=== PATIENT | male | born 1980 | race Caucasian/White ===

== ENCOUNTER 2018-06-06 10:44 | Emergency (ER) | payer OTHER ==
[2018-06-06 10:55] VITALS: BP 112/85; PULSE 93; TEMP 98.7; BMI 22.8
[2018-06-06] MEDS ORDERED: METHADONE HCL 10 MG TABLET (FOR DETOX USE ONLY) PO ONE (11:49)
--- NOTE | 2018-06-06 11:49 | PDOC ---
History of Present Illness - General Chief Complaint: RX Refill Stated Complaint: SENT FROM [facility]/ DETOX Time Seen by Provider: 06/06/18 11:09 History Source: Patient Exam Limitations: Clinical Condition - History of Present Illness Initial Comments: 06/06/18 11:44 Patient went history of opiate dependent presented for his dose of methadone after being late today to the methadone clinic today and was told to come to the emergency room for his dose. Patient reported no symptoms now. Timing/Duration: momentarily Past History - Past Medical History Allergies/Adverse Reactions: Allergies Allergy/AdvReac Type Severity Reaction Status Date / Time fish derived Allergy Severe Swelling Verified 06/06/18 10:55 Penicillins Allergy Severe Swelling Verified 06/06/18 10:55 Home Medications: Ambulatory Orders Divalproex [Depakote -] 500 mg PO BID #30 tablet.ec 12/13/14 Pantoprazole Sodium [Protonix -] 40 mg PO DAILY #30 tablet.ec 12/13/14 Quetiapine Fumarate [Seroquel -] 200 mg PO BID #60 12/13/14 traZODone HCL [Desyrel -] 100 mg PO HS #30 12/13/14 Quetiapine Fumarate [Seroquel] 300 mg PO BID #60 tablet 07/19/15 Mirtazapine [Remeron -] 15 mg PO HS #30 tablet 06/02/18 Quetiapine Fumarate [Seroquel -] 50 mg PO BID #60 tablet 06/02/18 Anemia: No Asthma: No Cancer: No Cardiac Disorders: Yes (heart murmur) CVA: No COPD: No CHF: No Dementia: No Diabetes: No GI Disorders: No Disorders: No HTN: No Hypercholesterolemia: No Kidney Stones: No Liver Disease: No Seizures: Yes (last episode was 6 months ago) Thyroid Disease: No - Surgical History Abdominal Surgery: Yes (abdominal hernia repair - laproscopic) Appendectomy: No Cardiac Surgery: No Cholecystectomy: No Lung Surgery: No Neurologic Surgery: No Orthopedic Surgery: No - Reproductive History Testicular Surgery: No - Immunization History Immunization Up to Date: Yes - Suicide/Smoking/Psychosocial Hx Smoking Status: Yes Smoking History: Current every day smoker Have you smoked in the past 12 months: No Number of Cigarettes Smoked Daily: 6 Cigars Per Day: 20 Information on smoking cessation initiated: No 'Breaking Loose' booklet given: 11/16/14 Hx Alcohol Use: No Drug/Substance Use Hx: Yes (methadone) Substance Use Type: Heroin Hx Substance Use Treatment: Yes Review of Systems - Review of Systems Able to Perform ROS?: Yes Is the patient limited Nauruan proficient: No Constitutional: No: Malaise, Weakness HEENTM: No: Symptoms Reported Cardiac (ROS): No: Symptoms Reported, See HPI, Chest Pain, Edema, Irregular Heart Rate, Lightheadedness, Palpitations, Syncope, Chest Tightness, Other ABD/GI: No: Nausea, Vomiting Neurological: No: Headache, Seizure, Unsteady Gait All Other Systems: Reviewed and Negative *Physical Exam - Vital Signs Last Vital Signs Temp Pulse Resp BP Pulse Ox 98.7 F 93 H 18 112/85 99 06/06/18 10:51 06/06/18 10:51 06/06/18 10:51 06/06/18 10:51 06/06/18 10:51 - Physical Exam General Appearance: Yes: Nourished, Appropriately Dressed. No: Apparent Distress HEENT: positive: Normal ENT Inspection Neck: positive: Supple Respiratory/Chest: positive: Lungs Clear, Normal Breath Sounds. negative: Respiratory Distress, Accessory Muscle Use Cardiovascular: positive: Regular Rhythm, Regular Rate Gastrointestinal/Abdominal: positive: Flat, Soft. negative: Tender Musculoskeletal: positive: Normal Inspection Extremity: positive: Normal Inspection Integumentary: positive: Normal Color Neurologic: positive: Fully Oriented, Alert, Normal Response Moderate Sedation - Procedure Monitoring Vital Signs: Procedure Monitoring Vital Signs Temperature 98.7 F 06/06/18 10:51 Pulse Rate 93 H 06/06/18 10:51 Respiratory Rate 18 06/06/18 10:51 Blood Pressure 112/85 06/06/18 10:51 O2 Sat by Pulse Oximetry (%) 99 06/06/18 10:51 Medical Decision Making - Medical Decision Making 06/06/18 11:47 Patient with history of opiate dependent presented for his methadone dose after medicine a dose today due to being late to the clinic. [facility] methadone clinic contacted, then clinic was closed and covering physician could not be reached. I was transferred to and spoke to nursing production clerks supervisor Waleska who confirmed patient does of 190 mg but report could not tell me the last dose. 190mg dose given to patient today and patient advised to follow up back with methadone clinic. *DC/Admit/Observation/Transfer Diagnosis at time of Disposition: Opioid dependence, Methadone dependence - Discharge Dispostion Disposition: HOME Condition at time of disposition: Stable Decision to Admit order: No - Referrals - Patient Instructions Printed Discharge Instructions: Methadone Additional Instructions: Your dose was given today. Follow-up back with methadone clinic as scheduled - Post Discharge Activity
[2018-06-06] MEDS ORDERED: METHADONE HCL 10 MG TABLET ONE (11:53)
== END 2018-06-06 12:06 | disposition home or self-care (01) ==
LOC: JERFT 10:44
DX: F11.20 Opioid dependence, uncomplicated (principal); F17.210 Nicotine dependence, cigarettes, uncomplicated; Z86.69 Personal history of other diseases of the nervous system and sense organs; Z88.0 Allergy status to penicillin; Z91.013 Allergy to seafood
CPT/HCPCS: 99281-25

== ENCOUNTER 2018-10-16 10:35 | Emergency (ER) | payer OTHER ==
[2018-10-16 10:53] VITALS: BMI 20.9
[2018-10-16] MEDS ORDERED: METHADONE HCL 10 MG TABLET PO ONE (11:01)
[2018-10-16] MEDS ORDERED: METHADONE HCL 10 MG TABLET ONE (11:07)
[2018-10-16] MEDS ORDERED: METHADONE HCL 40 MG DISPERSABLE TABLET ONE (11:08)
--- NOTE | 2018-10-16 11:14 | PDOC ---
History of Present Illness <Jaci Chandler - Last Filed: 10/16/18 11:49> - General History Source: Patient Exam Limitations: No Limitations <Anita Drew - Last Filed: 10/16/18 11:52> - General Chief Complaint: Shortness of Breath Stated Complaint: DIFFICULTY BREATHING Time Seen by Provider: 10/16/18 10:52 Past History <Jaci Chandler - Last Filed: 10/16/18 11:49> - Past Medical History Anemia: No Asthma: No Cancer: No Cardiac Disorders: Yes (heart murmur) CVA: No COPD: No CHF: No Dementia: No Diabetes: No GI Disorders: No Disorders: No HTN: No Hypercholesterolemia: No Kidney Stones: No Liver Disease: No Seizures: Yes (last episode was 6 months ago) Thyroid Disease: No - Surgical History Abdominal Surgery: Yes (abdominal hernia repair - laproscopic) Appendectomy: No Cardiac Surgery: No Cholecystectomy: No Lung Surgery: No Neurologic Surgery: No Orthopedic Surgery: No - Reproductive History Testicular Surgery: No - Immunization History Immunization Up to Date: Yes - Suicide/Smoking/Psychosocial Hx Smoking Status: Yes Smoking History: Current every day smoker Have you smoked in the past 12 months: No Number of Cigarettes Smoked Daily: 6 Cigars Per Day: 20 Information on smoking cessation initiated: No 'Breaking Loose' booklet given: 11/16/14 Hx Alcohol Use: No Drug/Substance Use Hx: Yes Substance Use Type: Heroin Hx Substance Use Treatment: Yes <Anita Drew - Last Filed: 10/16/18 11:52> - Past Medical History Allergies/Adverse Reactions: Allergies Allergy/AdvReac Type Severity Reaction Status Date / Time fish derived Allergy Severe Swelling Verified 10/16/18 10:45 Penicillins Allergy Severe Swelling Verified 10/16/18 10:45 Home Medications: Ambulatory Orders Mirtazapine [Remeron -] 30 mg PO HS #30 tablet 09/15/18 Fluoxetine HCl [Prozac] 20 mg PO DAILY #30 capsule 10/13/18 Methadone [Dolophine -] 190 mg PO DAILY 10/16/18 *Physical Exam - Vital Signs Last Vital Signs Temp Pulse Resp BP Pulse Ox 98.2 F 77 18 102/57 L 98 10/16/18 10:41 10/16/18 10:41 10/16/18 10:41 10/16/18 10:41 10/16/18 10:41 <Jaci Chandler - Last Filed: 10/16/18 11:49> - Vital Signs Last Vital Signs Temp Pulse Resp BP Pulse Ox 98.2 F 77 18 102/57 L 98 10/16/18 10:41 10/16/18 10:41 10/16/18 10:41 10/16/18 10:41 10/16/18 10:41 - Physical Exam General Appearance: No: Apparent Distress, Disheveled, Alcohol on Breath, Intoxicated Respiratory/Chest: positive: Lungs Clear, Normal Breath Sounds. negative: Respiratory Distress Cardiovascular: positive: Regular Rhythm, Regular Rate, S1, S2. negative: Murmur Gastrointestinal/Abdominal: positive: Normal Bowel Sounds, Soft. negative: Tender, Distended, Guarding, Rebound Integumentary: positive: Normal Color Neurologic: positive: Fully Oriented, Alert, Normal Mood/Affect <Anita Drew - Last Filed: 10/16/18 11:52> ED Treatment Course - Medications Given in the ED: ED Medications Discontinued Medications Generic Name Dose Route Start Last Admin Trade Name Freq PRN Reason Stop Dose Admin Methadone HCl 190 mg 10/16/18 11:01 10/16/18 11:14 Dolophine - PO 10/16/18 11:02 190 mg ONCE ONE Administration <Jaci Chandler - Last Filed: 10/16/18 11:49> Medical Decision Making - Medical Decision Making The patient was seen and evaluated in conjunction with midlevel provider under my direct supervision, ancillary studies were reviewed. I agree with the plan as outlined MIMA Drew. HPI, workup/dispo as outlined. VS reviewed, wnl. given methadone dose, confirmed EKG with sinus rhythm, prolonged QT which is different than prior, which could be from the ad terminal makeup operator methadone use. no ST segment derangements/elevations/ depressions. anticipate discharge, pcp followup, return precautions 10/16/18 11:49 <Jaci Chandler - Last Filed: 10/16/18 11:49> - Medical Decision Making 38 y/o M hx of substance abuse (opiates, on Methadone), PTSD, depression, anxiety, bipolar, heart murmur presents after missing his dose of methadone. Patient states he was running late to get his Methadone (has to get there by 10 AM and if he does not come in time, he does not receive his dose). Patient was running up hill and states when he reached the clinic, experienced some chest tightness, sob, tingling of fingers and collapsed on knees. States now he feels better. Patient was seen back in May for missing dose as well. Also has used other drugs in past (heroin, cocaine, PCP, DMT; however, states this was several years ago). Denies abd pain, n/v, headache. Sxs likely related to anxiety Patient feeling better currently Dose of methadone was confirmed by BUBBA Raphael Given Methadone 190 mg Will get EKG as well 10/16/18 11:10 EKG shows NSR at 71 bpm, QTc interval prolonged at 515 ms (prior EKG showed normal QTc interval) Likely related to Methadone usage (patient has been on the same dose for >1 year ) Patient currently asymptomatic Given copy of EKG; advised to f/u in medical clinic Stable for dc D/W Dr. Chandler 10/16/18 11:50 <Anita Drew - Last Filed: 10/16/18 11:52> *DC/Admit/Observation/Transfer <Jaci Chandler - Last Filed: 10/16/18 11:49> - Discharge Dispostion Decision to Admit order: No <Anita Drew - Last Filed: 10/16/18 11:52> Diagnosis at time of Disposition: Substance abuse - Discharge Dispostion Disposition: HOME Condition at time of disposition: Stable - Patient Instructions Additional Instructions: Thank you for choosing [facility]. It was a pleasure taking care of you. You were given your dose of Methadone today. Your QT interval was slightly prolonged on your EKG, likely related to your Methadone Please follow-up in medical clinic to keep an eye on this. Return to the Emergency Department if your symptoms worsen or persist or have other concerning symptoms.
[2018-10-16 11:55] VITALS: BP 102/68; PULSE 73; TEMP 98
--- NOTE | 2018-10-16 23:58 | EKG ---
Test Reason : Blood Pressure : / mmHG Vent. Rate : 071 BPM Atrial Rate : 071 BPM P-R Int : 152 ms QRS Dur : 088 ms QT Int : 474 ms P-R-T Axes : 079 047 038 degrees QTc Int : 515 ms POOR DATA QUALITY, INTERPRETATION MAY BE ADVERSELY AFFECTED NORMAL SINUS RHYTHM POSSIBLE LEFT ATRIAL ENLARGEMENT PROLONGED QT ABNORMAL ECG WHEN COMPARED WITH ECG OF 06-OCT-2018 08:51, NONSPECIFIC T WAVE ABNORMALITY, IMPROVED IN INFERIOR LEADS QT HAS LENGTHENED Confirmed by RAJWINDER HAMILTON MD ([id number]) on 10/16/2018 11:58:39 PM Referred By: Confirmed By:RAJWINDER HAMILTON MD
== END 2018-10-16 12:20 | disposition home or self-care (01) ==
LOC: JER 10:35
DX: F19.90 Other psychoactive substance use, unspecified, uncomplicated (principal); R01.1 Cardiac murmur, unspecified; F17.210 Nicotine dependence, cigarettes, uncomplicated
CPT/HCPCS: 93005; 93010; 99282-25

== ENCOUNTER 2018-11-12 12:48 | Emergency (ER) | payer OTHER ==
[2018-11-12 13:08] VITALS: BP 111/77; PULSE 92; TEMP 98.8; BMI 20.9
[2018-11-12] MEDS ORDERED: METHADONE HCL 10 MG TABLET PO ONE (13:46)
--- NOTE | 2018-11-12 13:57 | PDOC ---
History of Present Illness - General Chief Complaint: RX Refill Stated Complaint: METHADONE Time Seen by Provider: 11/12/18 13:11 History Source: Patient Exam Limitations: No Limitations Past History - Past Medical History Allergies/Adverse Reactions: Allergies Allergy/AdvReac Type Severity Reaction Status Date / Time fish derived Allergy Severe Swelling Verified 10/16/18 10:45 Penicillins Allergy Severe Swelling Verified 10/16/18 10:45 Home Medications: Ambulatory Orders Mirtazapine [Remeron -] 30 mg PO HS #30 tablet 09/15/18 Fluoxetine HCl [Prozac] 20 mg PO DAILY #30 capsule 10/13/18 Methadone [Dolophine -] 190 mg PO DAILY 10/16/18 Anemia: No Asthma: No Cancer: No Cardiac Disorders: Yes (heart murmur) CVA: No COPD: No CHF: No Dementia: No Diabetes: No GI Disorders: No Disorders: No HTN: No Hypercholesterolemia: No Kidney Stones: No Liver Disease: No Seizures: Yes (last episode was 6 months ago) Thyroid Disease: No - Surgical History Abdominal Surgery: Yes (abdominal hernia repair - laproscopic) Appendectomy: No Cardiac Surgery: No Cholecystectomy: No Lung Surgery: No Neurologic Surgery: No Orthopedic Surgery: No - Reproductive History Testicular Surgery: No - Immunization History Immunization Up to Date: Yes - Suicide/Smoking/Psychosocial Hx Smoking Status: Yes Smoking History: Current every day smoker Have you smoked in the past 12 months: No Number of Cigarettes Smoked Daily: 6 Cigars Per Day: 20 Information on smoking cessation initiated: No 'Breaking Loose' booklet given: 11/16/14 Hx Alcohol Use: No Drug/Substance Use Hx: Yes (methadone) Substance Use Type: Heroin Hx Substance Use Treatment: Yes *Physical Exam - Vital Signs Last Vital Signs Temp Pulse Resp BP Pulse Ox 98.8 F 92 H 19 111/77 99 11/12/18 13:05 11/12/18 13:05 11/12/18 13:05 11/12/18 13:05 11/12/18 13:05 - Physical Exam General Appearance: No: Apparent Distress, Disheveled Respiratory/Chest: positive: Lungs Clear, Normal Breath Sounds. negative: Respiratory Distress Cardiovascular: positive: Regular Rhythm, Regular Rate, S1, S2. negative: Murmur Gastrointestinal/Abdominal: positive: Soft. negative: Tender Neurologic: positive: Alert, Normal Mood/Affect Medical Decision Making - Medical Decision Making 38 y/o M hx of substance abuse (opiates, on Methadone), PTSD, depression, anxiety, bipolar, heart murmur presents after missing his dose of methadone today. States he was at [facility] today as his pet was sick and missed dose. Denies fever, sob, cp, abd pain, vomiting, headache. Of note, patient has been to the ED a few times in the past as well for missing his dose Dose of methadone confirmed with MIMA Heaton - is taking Methadone 180 mg ( prior dose was 190 mg and during last visit to ED, had prolonged QTc on his EKG ; per MIMA Heaton, after lowering the dose of his Methadone, his repeat EKG was checked and it was normal) Patient advised to avoid missing his methadone dose 11/12/18 13:57 *DC/Admit/Observation/Transfer Diagnosis at time of Disposition: Substance abuse - Discharge Dispostion Disposition: HOME Condition at time of disposition: Stable Decision to Admit order: No - Referrals - Patient Instructions Additional Instructions: Thank you for choosing [facility]. It was a pleasure taking care of you. Please refrain from missing your methadone dose Continue follow-up in your methadone clinic Return to the Emergency Department if you have any other concerning symptoms. - Post Discharge Activity
[2018-11-12] MEDS ORDERED: METHADONE HCL 10 MG TABLET ONE (14:04)
[2018-11-12] MEDS ORDERED: METHADONE HCL 40 MG DISPERSABLE TABLET ONE (14:05)
== END 2018-11-12 14:09 | disposition home or self-care (01) ==
LOC: JERFT 12:48
DX: Z76.0 Encounter for issue of repeat prescription (principal); F11.20 Opioid dependence, uncomplicated; F43.10 Post-traumatic stress disorder, unspecified; F41.8 Other specified anxiety disorders; F31.9 Bipolar disorder, unspecified
CPT/HCPCS: 99281-25

== ENCOUNTER → 2018-11-26 | Outpatient (CLI) | payer OTHER | LOC: YHH 15:07 ==

== ENCOUNTER 2020-10-10 09:58 | Inpatient (IN) | payer OTHER ==
[2020-10-10 10:32] VITALS: BMI 17.4
[2020-10-10] MEDS ORDERED: MAGNESIUM CITRATE 300 ML BOTTLE PO PRN (13:02)
[2020-10-10] MEDS ORDERED: IBUPROFEN 400 MG TABLET (FP) PO PRN (13:02)
[2020-10-10] MEDS ORDERED: LOPERAMIDE HCL 2 MG CAPSULE PO PRN (13:02)
[2020-10-10] MEDS ORDERED: MAGNESIUM HYDROX 2400MG/30ML ORAL SUSPENSION 30 ML CUP PO PRN (13:02)
[2020-10-10] MEDS ORDERED: MAG HYDROX/AL HYDROX/SIMETH 30 ML UNIT-DOSE CUP PO PRN (13:02)
[2020-10-10] MEDS ORDERED: ACETAMINOPHEN 325 MG TABLET (FP) PO PRN (13:02)
[2020-10-10] MEDS ORDERED: guaiFENesin 200 MG/10 ML 10 ML UNIT-DOSE CUPS PO PRN (13:02)
[2020-10-10] MEDS ORDERED: P-EPHED 60MG/TRIPROLIDI 2.5MG TABLET PO PRN (13:02)
[2020-10-10] MEDS ORDERED: TUBERCULIN PPD 5 TU/0.1ML VIAL ID ONE (15:31)
[2020-10-10] MEDS: hydrOXYzine PAMOATE 25 MG CAPSULE (FP) PO SCH ×3 (15:53→21:43)
[2020-10-10] MEDS: PRENATAL VITAMINS W/ FOLIC ACID TABLET (FP) PO SCH (15:53)
[2020-10-10] MEDS ORDERED: PT OWN MED DRAWER 7, Y5N ONE (16:28)
[2020-10-10 17:26] LABS: HEMATOCRIT 41.9 % (35.4-49); HEMOGLOBIN 13.8 GM/dL (11.7-16.9); MCH 30.4 pg (25.7-33.7); MCHC 32.9 g/dl (32.0-35.9); MEAN CELL VOLUME 92.5 fl (80-96); MEAN PLT VOLUME 9.7 fl (7.5-11.1); PLATELET COUNT 216 10^3/uL (134-434); RBC 4.53 M/mm3 (4.00-5.60); RDW 13.3 % (11.9-15.9); WHITE BLOOD COUNT 6.6 K/mm3 (4.0-10.0)
[2020-10-10 17:32] LABS: ALBUMIN 3.7 g/dl (3.4-5.0); BLOOD UREA NITROGEN 9.8 mg/dL (7-18); CALCIUM 8.6 mg/dL (8.5-10.1)
[2020-10-10 17:35] LABS: CREATININE 0.7 mg/dL (0.55-1.3)
[2020-10-10 17:36] LABS: BILIRUBIN,TOTAL 0.3 mg/dL (0.2-1)
[2020-10-10 17:37] LABS: TOT PROT 6.5 g/dl (6.4-8.2)
[2020-10-10] MEDS: MIRTAZAPINE 15 MG TABLET (FP) PO SCH (21:40)
[2020-10-10] MEDS: THIAMINE HCL 100 MG TABLET (FP) PO SCH (21:40)
[2020-10-10] MEDS: QUEtiapine FUMARATE 50 MG TABLET PO SCH (21:40)
[2020-10-10] MEDS ORDERED: MELATONIN 5 MG TABLETS PO SCH (22:00)
[2020-10-11] MEDS: hydrOXYzine PAMOATE 25 MG CAPSULE (FP) PO SCH ×5 (06:39→21:30)
[2020-10-11] MEDS ORDERED: methaDONE HCL 10 MG TABLET PO ONE ×2 (07:29→10:00)
[2020-10-11] MEDS ORDERED: methaDONE HCL 10 MG TABLET ONE (08:05)
[2020-10-11] MEDS ORDERED: methaDONE HCL 40 MG DISPERSABLE TABLET ONE (08:05)
[2020-10-11] MEDS ORDERED: PT OWN MED DRAWER 7, Y5N ONE (09:46)
[2020-10-11] MEDS: EMTRICITABINE/TENOFOV ALAFENAM (DESCOVY) TABLET PO SCH (09:47)
[2020-10-11] MEDS: NICOTINE 21 MG/24 HOURS TOPICAL PATCH TD SCH (09:47)
[2020-10-11] MEDS: PRENATAL VITAMINS W/ FOLIC ACID TABLET (FP) PO SCH (09:47)
[2020-10-11] MEDS: NICOTINE POLACRILEX 2 MG GUM BC PRN ×2 (09:48→17:08)
[2020-10-11] MEDS ORDERED: methaDONE HCL 40 MG DISPERSABLE TABLET PO SCH (10:00)
[2020-10-11 17:15] LABS: PH,URINE 7.5 (5.0-8.0); URINE APPEARANCE CLEAR; URINE BILIRUBIN NEGATIVE (NEGATIVE); URINE COLOR YELLOW; URINE GLUCOSE (UA) NEGATIVE (NEGATIVE); URINE KETONE NEGATIVE (NEGATIVE); URINE LEUK ESTERASE NEGATIVE (NEGATIVE); URINE NITRITE NEGATIVE (NEGATIVE); URINE PROTEIN NEGATIVE (NEGATIVE)
[2020-10-11] MEDS: MIRTAZAPINE 15 MG TABLET (FP) PO SCH (21:29)
[2020-10-11] MEDS: QUEtiapine FUMARATE 50 MG TABLET PO SCH (21:29)
[2020-10-11] MEDS: THIAMINE HCL 100 MG TABLET (FP) PO SCH (21:29)
[2020-10-12] MEDS ORDERED: methaDONE HCL 40 MG DISPERSABLE TABLET PO SCH (06:00)
[2020-10-12] MEDS ORDERED: methaDONE HCL 40 MG DISPERSABLE TABLET ONE (06:26)
[2020-10-12] MEDS ORDERED: methaDONE HCL 10 MG TABLET ONE (06:26)
[2020-10-12] MEDS: hydrOXYzine PAMOATE 25 MG CAPSULE (FP) PO SCH ×5 (06:47→21:32)
[2020-10-12] MEDS: PRENATAL VITAMINS W/ FOLIC ACID TABLET (FP) PO SCH (09:04)
[2020-10-12] MEDS: EMTRICITABINE/TENOFOV ALAFENAM (DESCOVY) TABLET PO SCH (09:04)
[2020-10-12] MEDS: NICOTINE 21 MG/24 HOURS TOPICAL PATCH TD SCH (09:04)
[2020-10-12] MEDS: THIAMINE HCL 100 MG TABLET (FP) PO SCH (21:14)
[2020-10-12] MEDS: MIRTAZAPINE 15 MG TABLET (FP) PO SCH (21:14)
[2020-10-12] MEDS: QUEtiapine FUMARATE 50 MG TABLET PO SCH (21:15)
[2020-10-12] MEDS: NICOTINE POLACRILEX 2 MG GUM BC PRN (21:16)
[2020-10-13] MEDS ORDERED: methaDONE HCL 10 MG TABLET ONE (05:45)
[2020-10-13] MEDS ORDERED: methaDONE HCL 40 MG DISPERSABLE TABLET ONE (05:45)
[2020-10-13] MEDS: hydrOXYzine PAMOATE 25 MG CAPSULE (FP) PO SCH ×5 (06:15→21:36)
[2020-10-13] MEDS ORDERED: PT OWN MED DRAWER 7, Y5N ONE (08:32)
[2020-10-13] MEDS: EMTRICITABINE/TENOFOV ALAFENAM (DESCOVY) TABLET PO SCH (09:58)
[2020-10-13] MEDS: NICOTINE 21 MG/24 HOURS TOPICAL PATCH TD SCH (09:58)
[2020-10-13] MEDS: PRENATAL VITAMINS W/ FOLIC ACID TABLET (FP) PO SCH (09:58)
[2020-10-13] MEDS: NICOTINE POLACRILEX 2 MG GUM BC PRN ×2 (18:55→21:36)
[2020-10-13] MEDS: MIRTAZAPINE 15 MG TABLET (FP) PO SCH (21:36)
[2020-10-13] MEDS: THIAMINE HCL 100 MG TABLET (FP) PO SCH (21:36)
[2020-10-13] MEDS: QUEtiapine FUMARATE 50 MG TABLET PO SCH (21:36)
[2020-10-14] MEDS: NICOTINE POLACRILEX 2 MG GUM BC PRN ×4 (01:50→21:22)
[2020-10-14] MEDS ORDERED: methaDONE HCL 10 MG TABLET ONE (03:44)
[2020-10-14] MEDS ORDERED: methaDONE HCL 40 MG DISPERSABLE TABLET ONE (03:45)
[2020-10-14] MEDS: hydrOXYzine PAMOATE 25 MG CAPSULE (FP) PO SCH ×5 (06:57→21:21)
[2020-10-14] MEDS: EMTRICITABINE/TENOFOV ALAFENAM (DESCOVY) TABLET PO SCH (09:47)
[2020-10-14] MEDS: NICOTINE 21 MG/24 HOURS TOPICAL PATCH TD SCH (09:47)
[2020-10-14] MEDS: PRENATAL VITAMINS W/ FOLIC ACID TABLET (FP) PO SCH (09:47)
[2020-10-14] MEDS: QUEtiapine FUMARATE 50 MG TABLET PO SCH (21:21)
[2020-10-14] MEDS: THIAMINE HCL 100 MG TABLET (FP) PO SCH (21:21)
[2020-10-14] MEDS: MIRTAZAPINE 15 MG TABLET (FP) PO SCH (21:21)
[2020-10-15] MEDS ORDERED: methaDONE HCL 10 MG TABLET ONE (03:16)
[2020-10-15] MEDS ORDERED: methaDONE HCL 40 MG DISPERSABLE TABLET ONE (03:17)
[2020-10-15] MEDS: hydrOXYzine PAMOATE 25 MG CAPSULE (FP) PO SCH ×2 (06:29→09:16)
[2020-10-15 06:50] VITALS: BP 100/64; PULSE 93; TEMP 96.7
[2020-10-15] MEDS: PRENATAL VITAMINS W/ FOLIC ACID TABLET (FP) PO SCH (09:16)
[2020-10-15] MEDS: NICOTINE 21 MG/24 HOURS TOPICAL PATCH TD SCH (09:16)
[2020-10-15] MEDS ORDERED: PT OWN MED DRAWER 7, Y5N ONE (09:17)
[2020-10-15] MEDS: NICOTINE POLACRILEX 2 MG GUM BC PRN (09:19)
[2020-10-15] MEDS: EMTRICITABINE/TENOFOV ALAFENAM (DESCOVY) TABLET PO SCH (09:20)
[2020-10-15] MEDS ORDERED: hydrOXYzine PAMOATE 25 MG CAPSULE (FP) PO PRN (11:41)
== END 2020-10-15 12:20 | disposition home or self-care (01) | DRG 772 ==
LOC: YASAS 09:58 → Y3E 14:09
PROVIDERS: ADMIT Allergy & Immunology; ATTEND Allergy & Immunology
PROC: HZ42ZZZ Group Counseling for Substance Abuse Treatment, Cognitive-Behavioral (ICD-10-PCS; principal; 2020-10-10)
DX: F14.20 Cocaine dependence, uncomplicated (principal); F11.20 Opioid dependence, uncomplicated; F12.20 Cannabis dependence, uncomplicated; F17.210 Nicotine dependence, cigarettes, uncomplicated; F19.282 Other psychoactive substance dependence with psychoactive substance-induced sleep disorder; F19.24 Other psychoactive substance dependence with psychoactive substance-induced mood disorder; F31.9 Bipolar disorder, unspecified; F41.9 Anxiety disorder, unspecified; R63.4 Abnormal weight loss; Z68.1 Body mass index [BMI] 19.9 or less, adult; Z98.890 Other specified postprocedural states; Z88.0 Allergy status to penicillin; Z91.013 Allergy to seafood
CPT/HCPCS: 36415; 80053; 81003; 85027; 86780; 93005; 93010; C9803; U0003; U0005

== ENCOUNTER 2021-08-01 22:29 | Inpatient (IN) | payer OTHER ==
[2021-08-01] MEDS ORDERED: MAGNESIUM CITRATE 300 ML BOTTLE PO PRN (23:28)
[2021-08-01] MEDS ORDERED: guaiFENesin 200 MG/10 ML 10 ML UNIT-DOSE CUPS PO PRN (23:28)
[2021-08-01] MEDS ORDERED: MAGNESIUM HYDROX 2400MG/30ML ORAL SUSPENSION 30 ML CUP PO PRN (23:28)
[2021-08-01] MEDS ORDERED: NICOTINE POLACRILEX 2 MG GUM BC PRN (23:28)
[2021-08-01] MEDS ORDERED: ACETAMINOPHEN 325 MG TABLET (FP) PO PRN (23:28)
[2021-08-01] MEDS ORDERED: IBUPROFEN 400 MG TABLET (FP) PO PRN (23:28)
[2021-08-01] MEDS ORDERED: MAG HYDROX/AL HYDROX/SIMETH 30 ML UNIT-DOSE CUP PO PRN (23:28)
[2021-08-01] MEDS ORDERED: NALOXONE HCL 0.4 MG/ML VIAL IM PRN (23:28)
[2021-08-01] MEDS ORDERED: P-EPHED 60MG/TRIPROLIDI 2.5MG TABLET PO PRN (23:28)
[2021-08-01] MEDS ORDERED: LOPERAMIDE HCL 2 MG CAPSULE PO PRN (23:28)
[2021-08-01] MEDS ORDERED: hydrOXYzine PAMOATE 25 MG CAPSULE (FP) PO PRN (23:28)
[2021-08-01 23:51] VITALS: BMI 16.9
[2021-08-02] MEDS: MELATONIN 5 MG TABLETS PO SCH ×2 (07:00→21:39)
[2021-08-02] MEDS ORDERED: methaDONE HCL 10 MG TABLET PO SCH (07:00)
[2021-08-02] MEDS ORDERED: methaDONE HCL 10 MG TABLET ONE (07:13)
[2021-08-02] MEDS ORDERED: methaDONE HCL 40 MG DISPERSABLE TABLET ONE (07:13)
[2021-08-02] MEDS ORDERED: TUBERCULIN PPD 5 TU/0.1ML VIAL ID ONE (07:15)
[2021-08-02] MEDS: NICOTINE 21 MG/24 HOURS TOPICAL PATCH TD SCH (09:50)
[2021-08-02] MEDS: PRENATAL VITAMINS W/ FOLIC ACID TABLET (FP) PO SCH (09:50)
[2021-08-02 09:54] LABS: HEMATOCRIT 36.2 % (35.4-49); HEMOGLOBIN 12.6 GM/dL (11.7-16.9); MCH 31.9 pg (25.7-33.7); MCHC 34.9 g/dl (32.0-35.9); MEAN CELL VOLUME 91.7 fl (80-96); PLATELET COUNT 172 10^3/uL (134-434); RBC 3.95 M/mm3 (4.00-5.60); RDW 12.8 % (11.9-15.9); WHITE BLOOD COUNT 7.9 K/mm3 (4.0-10.0)
[2021-08-02 10:13] LABS: BILIRUBIN,TOTAL 0.2 mg/dL (0.2-1)
[2021-08-02 10:26] LABS: CALCIUM 8.6 mg/dL (8.5-10.1)
[2021-08-02 10:27] LABS: ALBUMIN 3.3 g/dl (3.4-5.0); BLOOD UREA NITROGEN 16.7 mg/dL (7-18)
[2021-08-02 10:30] LABS: CREATININE 0.8 mg/dL (0.55-1.3)
[2021-08-02 10:32] LABS: TOT PROT 5.4 g/dl (6.4-8.2)
[2021-08-02 11:42] LABS: SYPHILIS W/ RPR CONF NON-REACTIVE (NONREACTIVE)
[2021-08-02 17:21] LABS: URINE APPEARANCE TURBID; URINE BILIRUBIN NEGATIVE (NEGATIVE); URINE COLOR YELLOW; URINE GLUCOSE (UA) NEGATIVE (NEGATIVE); URINE KETONE NEGATIVE (NEGATIVE); URINE LEUK ESTERASE NEGATIVE (NEGATIVE); URINE NITRITE NEGATIVE (NEGATIVE); URINE PROTEIN NEGATIVE (NEGATIVE)
[2021-08-02] MEDS: THIAMINE HCL 100 MG TABLET (FP) PO SCH (21:39)
[2021-08-02] MEDS: MIRTAZAPINE 15 MG TABLET (FP) PO SCH (21:39)
[2021-08-03] MEDS ORDERED: methaDONE HCL 10 MG TABLET ONE (03:23)
[2021-08-03] MEDS ORDERED: methaDONE HCL 40 MG DISPERSABLE TABLET ONE (03:23)
[2021-08-03] MEDS: NICOTINE 21 MG/24 HOURS TOPICAL PATCH TD SCH (09:58)
[2021-08-03] MEDS: PRENATAL VITAMINS W/ FOLIC ACID TABLET (FP) PO SCH (09:59)
[2021-08-03] MEDS: NICOTINE 10 MG CARTRIDGE (INHALER) IH SCH (12:11)
[2021-08-03] MEDS: MELATONIN 5 MG TABLETS PO SCH (21:57)
[2021-08-03] MEDS: THIAMINE HCL 100 MG TABLET (FP) PO SCH (21:58)
[2021-08-03] MEDS: MIRTAZAPINE 15 MG TABLET (FP) PO SCH (21:59)
[2021-08-04] MEDS ORDERED: methaDONE HCL 10 MG TABLET ONE (03:27)
[2021-08-04] MEDS ORDERED: methaDONE HCL 40 MG DISPERSABLE TABLET ONE (03:28)
[2021-08-04] MEDS: NICOTINE 21 MG/24 HOURS TOPICAL PATCH TD SCH (10:02)
[2021-08-04] MEDS: PRENATAL VITAMINS W/ FOLIC ACID TABLET (FP) PO SCH (10:02)
[2021-08-04] MEDS: NICOTINE 10 MG CARTRIDGE (INHALER) IH SCH (10:02)
[2021-08-04] MEDS: MELATONIN 5 MG TABLETS PO SCH (21:37)
[2021-08-04] MEDS: THIAMINE HCL 100 MG TABLET (FP) PO SCH (21:37)
[2021-08-04] MEDS: MIRTAZAPINE 15 MG TABLET (FP) PO SCH (21:39)
[2021-08-05] MEDS ORDERED: methaDONE HCL 40 MG DISPERSABLE TABLET ONE (04:31)
[2021-08-05] MEDS ORDERED: methaDONE HCL 10 MG TABLET ONE (04:31)
[2021-08-05 06:33] VITALS: BP 113/75; PULSE 77; TEMP 97.1
[2021-08-05] MEDS: PRENATAL VITAMINS W/ FOLIC ACID TABLET (FP) PO SCH (09:20)
[2021-08-05] MEDS: NICOTINE 10 MG CARTRIDGE (INHALER) IH SCH (09:21)
[2021-08-05] MEDS: NICOTINE 21 MG/24 HOURS TOPICAL PATCH TD SCH (09:21)
[2021-08-05] MEDS ORDERED: NICOTINE 10 MG CARTRIDGE (INHALER) IH PRN (09:51)
== END 2021-08-05 12:14 | disposition home or self-care (01) | DRG 772 ==
LOC: YASAS 22:29 → Y3E 08-02 03:27
PROVIDERS: ADMIT Allergy & Immunology; ATTEND Allergy & Immunology
PROC: HZ42ZZZ Group Counseling for Substance Abuse Treatment, Cognitive-Behavioral (ICD-10-PCS; principal; 2021-08-02)
DX: F11.20 Opioid dependence, uncomplicated (principal); F14.20 Cocaine dependence, uncomplicated; F12.20 Cannabis dependence, uncomplicated; F17.210 Nicotine dependence, cigarettes, uncomplicated; F19.282 Other psychoactive substance dependence with psychoactive substance-induced sleep disorder; F19.24 Other psychoactive substance dependence with psychoactive substance-induced mood disorder; F31.9 Bipolar disorder, unspecified; F41.9 Anxiety disorder, unspecified; F43.10 Post-traumatic stress disorder, unspecified; G47.00 Insomnia, unspecified; R63.4 Abnormal weight loss; Z68.1 Body mass index [BMI] 19.9 or less, adult; Z28.310 Unvaccinated for COVID-19
CPT/HCPCS: 36415; 80053; 81003; 85027; 86780; 86803; 93005; 93010; C9803-CS; U0003; U0005

== ENCOUNTER 2022-01-21 02:01 | Inpatient (IN) | payer OTHER ==
[2022-01-21] MEDS ORDERED: LOPERAMIDE HCL 2 MG CAPSULE PO PRN (02:13)
[2022-01-21] MEDS ORDERED: guaiFENesin 200 MG/10 ML 10 ML UNIT-DOSE CUPS PO PRN (02:13)
[2022-01-21] MEDS ORDERED: hydrOXYzine PAMOATE 25 MG CAPSULE (FP) PO PRN (02:13)
[2022-01-21] MEDS ORDERED: MAGNESIUM HYDROX 2400MG/30ML ORAL SUSPENSION 30 ML CUP PO PRN (02:13)
[2022-01-21] MEDS ORDERED: MAGNESIUM CITRATE 300 ML BOTTLE PO PRN (02:13)
[2022-01-21] MEDS ORDERED: NICOTINE POLACRILEX 2 MG GUM BC PRN (02:13)
[2022-01-21] MEDS ORDERED: MAG HYDROX/AL HYDROX/SIMETH 30 ML UNIT-DOSE CUP PO PRN (02:13)
[2022-01-21] MEDS ORDERED: P-EPHED 60MG/TRIPROLIDI 2.5MG TABLET PO PRN (02:13)
[2022-01-21 02:29] VITALS: BMI 16.1
[2022-01-21] MEDS ORDERED: methaDONE HCL 10 MG TABLET PO SCH ×2 (09:15)
[2022-01-21] MEDS ORDERED: TUBERCULIN PPD 5 TU/0.1ML VIAL ID ONE (10:28)
[2022-01-21] MEDS: PRENATAL VITAMINS W/ FOLIC ACID TABLET (FP) PO SCH (10:32)
[2022-01-21] MEDS: NICOTINE 14 MG/24 HOURS TOPICAL PATCH TD SCH (10:32)
[2022-01-21 10:47] LABS: CALCIUM 8.5 mg/dL (8.5-10.1)
[2022-01-21 10:48] LABS: ALBUMIN 3.3 g/dl (3.4-5.0); BLOOD UREA NITROGEN 25.3 mg/dL (7-18)
[2022-01-21 10:51] LABS: CREATININE 0.9 mg/dL (0.55-1.3)
[2022-01-21 10:52] LABS: BILIRUBIN,TOTAL 0.3 mg/dL (0.2-1)
[2022-01-21 10:53] LABS: HEMATOCRIT 39.1 % (35.4-49); HEMOGLOBIN 12.7 GM/dL (11.7-16.9); MCH 30.4 pg (25.7-33.7); MCHC 32.4 g/dl (32.0-35.9); MEAN PLT VOLUME 9.2 fl (7.5-11.1); PLATELET COUNT 238 10^3/uL (134-434); RBC 4.16 M/mm3 (4.00-5.60); RDW 13.1 % (11.9-15.9); WHITE BLOOD COUNT 7.3 K/mm3 (4.0-10.0)
[2022-01-21 11:48] LABS: SYPHILIS W/ RPR CONF NON-REACTIVE (NONREACTIVE)
[2022-01-21] MEDS: MELATONIN 5 MG TABLETS PO SCH (21:42)
[2022-01-21] MEDS: THIAMINE HCL 100 MG TABLET (FP) PO SCH (21:42)
[2022-01-21] MEDS: MIRTAZAPINE 15 MG TABLET (FP) PO SCH (21:44)
[2022-01-22] MEDS: IBUPROFEN 400 MG TABLET (FP) PO PRN (06:17)
[2022-01-22 07:09] VITALS: RESP 18
[2022-01-22] MEDS: PRENATAL VITAMINS W/ FOLIC ACID TABLET (FP) PO SCH (09:37)
[2022-01-22] MEDS: NICOTINE 14 MG/24 HOURS TOPICAL PATCH TD SCH (09:37)
[2022-01-22 11:29] LABS: URINE APPEARANCE CLEAR; URINE BILIRUBIN NEGATIVE (NEGATIVE); URINE COLOR YELLOW; URINE GLUCOSE (UA) NEGATIVE (NEGATIVE); URINE KETONE NEGATIVE (NEGATIVE); URINE LEUK ESTERASE NEGATIVE (NEGATIVE); URINE NITRITE NEGATIVE (NEGATIVE); URINE PROTEIN NEGATIVE (NEGATIVE); URINE UROBILINOGEN 0.2 mg/dL (0.2-1.0)
[2022-01-22] MEDS: METHOCARBAMOL 500 MG TABLET PO SCH ×2 (14:00→21:29)
[2022-01-22] MEDS ORDERED: NICOTINE 10 MG CARTRIDGE (INHALER) IH SCH (14:00)
[2022-01-22] MEDS: NICOTINE 10 MG CARTRIDGE (INHALER) IH PRN (16:59)
[2022-01-22] MEDS: MELATONIN 5 MG TABLETS PO SCH (21:29)
[2022-01-22] MEDS: MIRTAZAPINE 15 MG TABLET (FP) PO SCH (21:29)
[2022-01-22] MEDS: THIAMINE HCL 100 MG TABLET (FP) PO SCH (21:29)
[2022-01-23] MEDS: PRENATAL VITAMINS W/ FOLIC ACID TABLET (FP) PO SCH (10:29)
[2022-01-23] MEDS: IBUPROFEN 400 MG TABLET (FP) PO PRN ×2 (10:30→21:29)
[2022-01-23] MEDS: METHOCARBAMOL 500 MG TABLET PO SCH ×2 (10:30→21:28)
[2022-01-23] MEDS: NICOTINE 14 MG/24 HOURS TOPICAL PATCH TD SCH (10:30)
[2022-01-23] MEDS: MIRTAZAPINE 15 MG TABLET (FP) PO SCH (21:28)
[2022-01-23] MEDS: THIAMINE HCL 100 MG TABLET (FP) PO SCH (21:28)
[2022-01-23] MEDS: MELATONIN 5 MG TABLETS PO SCH (21:28)
[2022-01-23] MEDS: NICOTINE 10 MG CARTRIDGE (INHALER) IH PRN (21:29)
[2022-01-24] MEDS: IBUPROFEN 400 MG TABLET (FP) PO PRN (06:04)
[2022-01-24 07:11] VITALS: BP 125/78; PULSE 71; TEMP 98.9
[2022-01-24] MEDS: PRENATAL VITAMINS W/ FOLIC ACID TABLET (FP) PO SCH (09:38)
[2022-01-24] MEDS: METHOCARBAMOL 500 MG TABLET PO SCH ×2 (09:38→21:58)
[2022-01-24] MEDS: NICOTINE 14 MG/24 HOURS TOPICAL PATCH TD SCH (09:39)
[2022-01-24] MEDS: NICOTINE 10 MG CARTRIDGE (INHALER) IH PRN ×2 (09:40→18:27)
[2022-01-24] MEDS: MIRTAZAPINE 15 MG TABLET (FP) PO SCH (21:58)
[2022-01-24] MEDS: THIAMINE HCL 100 MG TABLET (FP) PO SCH (21:58)
[2022-01-24] MEDS: MELATONIN 5 MG TABLETS PO SCH (21:59)
[2022-01-25] MEDS: ACETAMINOPHEN 325 MG TABLET (FP) PO PRN ×2 (06:02→10:47)
[2022-01-25] MEDS: METHOCARBAMOL 500 MG TABLET PO SCH (10:46)
[2022-01-25] MEDS: PRENATAL VITAMINS W/ FOLIC ACID TABLET (FP) PO SCH (10:46)
[2022-01-25] MEDS: NICOTINE 14 MG/24 HOURS TOPICAL PATCH TD SCH (10:46)
[2022-01-25] MEDS: NICOTINE 10 MG CARTRIDGE (INHALER) IH PRN (16:50)
== END 2022-01-25 20:58 | disposition left against medical advice (07) | DRG 770 ==
LOC: YASAS 02:01 → Y3W 05:43
PROVIDERS: ADMIT Allergy & Immunology; ATTEND Allergy & Immunology
PROC: HZ42ZZZ Group Counseling for Substance Abuse Treatment, Cognitive-Behavioral (ICD-10-PCS; principal; 2022-01-21)
DX: F14.20 Cocaine dependence, uncomplicated (principal); F11.20 Opioid dependence, uncomplicated; F12.20 Cannabis dependence, uncomplicated; F17.210 Nicotine dependence, cigarettes, uncomplicated; F19.282 Other psychoactive substance dependence with psychoactive substance-induced sleep disorder; F19.24 Other psychoactive substance dependence with psychoactive substance-induced mood disorder; G40.909 Epilepsy, unspecified, not intractable, without status epilepticus; M62.830 Muscle spasm of back; M54.50 Low back pain, unspecified; G89.29 Other chronic pain; R64 Cachexia; Z68.1 Body mass index [BMI] 19.9 or less, adult; Z87.820 Personal history of traumatic brain injury; Z28.310 Unvaccinated for COVID-19; Z28.21 Immunization not carried out because of patient refusal; Z88.0 Allergy status to penicillin; Z91.013 Allergy to seafood; Z59.00 Homelessness unspecified; Z91.199 Patient's noncompliance with other medical treatment and regimen due to unspecified reason
CPT/HCPCS: 36415; 80053; 81003; 85027; 86780; 86803; C9803-CS; U0003; U0005

== ENCOUNTER 2023-10-27 01:20 | Inpatient (IN) | payer OTHER ==
[2023-10-27 01:45] VITALS: BMI 25.1
[2023-10-27] MEDS ORDERED: ACETAMINOPHEN 325 MG TABLET (FP) PO PRN (02:03)
[2023-10-27] MEDS ORDERED: hydrOXYzine PAMOATE 25 MG CAPSULE (FP) PO PRN (02:03)
[2023-10-27] MEDS ORDERED: MAG HYDROX/AL HYDROX/SIMETH 30 ML UNIT-DOSE CUP PO PRN (02:03)
[2023-10-27] MEDS ORDERED: LOPERAMIDE HCL 2 MG CAPSULE PO PRN (02:03)
[2023-10-27] MEDS ORDERED: METHOCARBAMOL 500 MG TABLET PO PRN (02:03)
[2023-10-27] MEDS ORDERED: IBUPROFEN 400 MG TABLET (FP) PO PRN (02:03)
[2023-10-27] MEDS ORDERED: NICOTINE POLACRILEX 2 MG GUM BUC PRN (02:03)
[2023-10-27] MEDS ORDERED: IBUPROFEN 600 MG TABLET (FP) PO PRN (02:03)
[2023-10-27] MEDS ORDERED: guaiFENesin 600 MG TABLET.ER (FP) PO PRN (02:03)
[2023-10-27] MEDS ORDERED: MAGNESIUM HYDROX 2400MG/30ML ORAL SUSPENSION 30 ML CUP PO PRN (02:03)
[2023-10-27] MEDS ORDERED: POLYETHYLENE GLYCOL (HEALTHYLAX) 3350 17 GM PACKET PO PRN (02:03)
[2023-10-27] MEDS ORDERED: BENZOCAINE/MENTHOL (CHLORASEPTIC ) LOZENGE MM PRN (02:03)
[2023-10-27] MEDS ORDERED: BENZONATATE 200 MG CAPSULE PO PRN (02:03)
[2023-10-27] MEDS: PRENATAL VITAMINS W/ FOLIC ACID TABLET (FP) PO SCH (05:55)
[2023-10-27] MEDS: NICOTINE 14 MG/24 HOURS TOPICAL PATCH TD SCH (05:55)
[2023-10-27] MEDS: TUBERCULIN PPD 5 TU/0.1ML VIAL ID ONE (10:28)
[2023-10-27] MEDS: TUBERCULIN PPD 5 TU/0.1ML SYRINGE (IN PATIENT USE ONLY) ID ONE (10:28)
[2023-10-27] MEDS ORDERED: methaDONE HCL 10 MG TABLET PO SCH (11:00)
[2023-10-27 12:00] LABS: BASO % 0.6 % (0-2.0); EOS % 2.3 % (0-4.5); HEMATOCRIT 37.3 % (35.4-49); HEMOGLOBIN 12.6 GM/dL (11.7-16.9); LYMPH % 36.6 % (8-40); MCH 29.5 pg (25.7-33.7); MCHC 33.9 g/dl (32.0-35.9); MEAN CELL VOLUME 87.2 fl (80-96); MEAN PLT VOLUME 9.4 fl (7.5-11.1); MONO % 10.2 % (3.8-10.2); NEUT % 50.3 % (42.8-82.8); PLATELET COUNT 217 10^3/uL (134-434); RBC 4.28 M/mm3 (4.00-5.60); RDW 14.1 % (11.9-15.9); WHITE BLOOD COUNT 7.1 K/mm3 (4.0-10.0)
[2023-10-27 12:08] LABS: POTASSIUM 3.1 mmol/L (3.5-5.1)
[2023-10-27 12:18] LABS: CALCIUM 7.9 mg/dL (8.5-10.1)
[2023-10-27 12:19] LABS: BLOOD UREA NITROGEN 16.7 mg/dL (7-18)
[2023-10-27 12:21] LABS: CREATININE 0.8 mg/dL (0.55-1.3)
[2023-10-27 12:23] LABS: BILIRUBIN,TOTAL 0.2 mg/dL (0.2-1); TOT PROT 6.1 g/dl (6.4-8.2)
[2023-10-27] MEDS: THIAMINE 100 MG TABLET PO SCH (21:32)
[2023-10-27] MEDS: MELATONIN 5 MG TABLETS PO SCH (21:32)
[2023-10-28] MEDS: POTASSIUM CHLORIDE TABS 20 MEQ TABLET.ER (FP) PO SCH (13:20)
[2023-10-28] MEDS ORDERED: ALBUTEROL SO4 HFA INHALER IH PRN (13:39)
[2023-10-28] MEDS: BUDESONIDE/FORMETEROL FUMARATE 160/4.5 mcg INHALER IH SCH (21:27)
[2023-10-29 06:44] VITALS: TEMP 97.8
[2023-10-29] MEDS ORDERED: NICOTINE 14 MG/24 HOURS TOPICAL PATCH TD PRN (08:44)
[2023-10-29 09:03] VITALS: BP 104/75; PULSE 66; RESP 18
[2023-10-29] MEDS ORDERED: TIOTROPIUM BROMIDE 2.5 MCG (SPIRIVA) RESPIMAT INHALER IH SCH (10:00)
== END 2023-10-29 10:31 | disposition left against medical advice (07) | DRG 770 ==
LOC: YASAS 01:20 → Y3NR 02:38 → Y3W 13:27
PROVIDERS: ADMIT Allergy & Immunology; ATTEND Psychiatry & Neurology Pain Medicine
PROC: HZ42ZZZ Group Counseling for Substance Abuse Treatment, Cognitive-Behavioral (ICD-10-PCS; principal; 2023-10-27)
DX: F14.20 Cocaine dependence, uncomplicated (principal); F11.20 Opioid dependence, uncomplicated; F19.982 Other psychoactive substance use, unspecified with psychoactive substance-induced sleep disorder; F19.94 Other psychoactive substance use, unspecified with psychoactive substance-induced mood disorder; E87.6 Hypokalemia; J44.9 Chronic obstructive pulmonary disease, unspecified; Z86.69 Personal history of other diseases of the nervous system and sense organs; Z87.891 Personal history of nicotine dependence; Z91.198 Patient's noncompliance with other medical treatment and regimen for other reason; Z88.0 Allergy status to penicillin; Z91.013 Allergy to seafood; Z59.00 Homelessness unspecified
CPT/HCPCS: 36415; 80053; 80305; 84132; 85025; 86780; 86803; 87811; 93005; 93010